=== PATIENT | male | born 1945 | race Caucasian/White ===

== ENCOUNTER 2018-11-07 10:07 | Outpatient (CLI) | payer MEDICARE ==
--- NOTE | 2018-11-07 11:20 | MRI ---
[facility] lumbar spine noncontrast: HISTORY: Lumbar spine stenosis. COMPARISON: None FINDINGS: Heterogeneous marrow signal intensity of the lumbar vertebra, likely due to senescent change. Type II Modic changes at L5-S1. 3 mm of anterolisthesis of L4 upon L5, 4 mm occlusive L5 upon S1 No significant STIR hyperintensity to suggest vertebral body edema or ligamentous injury Appropriate signal intensity of the paraspinal muscles T2 hyperintensity the left renal pelvis may represent a cyst Conus medullaris terminates at the inferior aspect of L1 T12-L1:Adequate disc hydration. No significant central canal stenosis or neural foraminal narrowing L1-2:Adequate disc hydration. No significant central canal stenosis or foraminal narrowing L2-3:Adequate disc hydration. No significant central canal stenosis or foraminal narrowing L3-4:Adequate disc hydration. Minimal generalized disc bulge, mild ligament flavum thickening and fac et hypertrophy. Mild central canal stenosis. Neural foramina are patent. L4-5:Loss of disc space height. Generalized disc bulge, ligament flavum thickening and facet hypertro phy result in moderate central canal stenosis. Narrowing of the right subarticular zone with partial obscuration of the traversing right L5 nerve root. Moderate right foraminal narrowing. Left neural fo ramen is patent. Small amount of fluid in the right facet joint L5-S1:Desiccation and moderate loss of disc space height. Generalized disc bulge without significant central canal stenosis. Minimal encroachment upon the right subarticular zone without obscuration the traversing right S1 nerve root. There is disc material left subarticular zone which displaces and mi nimally deforms the traversing left S1 nerve root. Moderate to severe bilateral neural foraminal narr owing. IMPRESSION: 1. Degenerative disc disease at L4-L5 with moderate central canal stenosis. There is moderate left f oraminal narrowing. 2. Narrowing of the left subarticular zone at L5-S1. There is some deformity without obscuration the traversing left S1 nerve root.
== END 2018-11-07 10:08 | disposition home or self-care (01) ==
LOC: TBSIIMAG 10:07
PROVIDERS: ATTEND Neurological Surgery
DX: M48.062 Spinal stenosis, lumbar region with neurogenic claudication (principal); G45.0 Vertebro-basilar artery syndrome; M51.36 Other intervertebral disc degeneration, lumbar region; M48.07 Spinal stenosis, lumbosacral region
CPT/HCPCS: 72148

== ENCOUNTER 2020-09-28 20:19 | Inpatient (IN) | payer MEDICARE ==
[2020-09-28 21:14] LABS: Bilirubin Negative (Negative); Blood, Urine Negative (Negative); Clarity Clear (Clear); Glucose, Urine (Dipstick) 500 mg/dL (Negative); Ketone, Urine Negative (Negative); Leukocyte Negative Leu/uL (Negative); Nitrite 2+ (Negative); Protein, Urine (Dipstick) Negative (Neg-Trace); RBC/HPF 0-3 HPF (0-3); Specific Gravity, Urine 1.019 (1.002-1.036); Squamous Epithelial 0-3 HPF (0-3); Urobilinogen 3 mg/dL (Less than 2); pH, Urine 6.5 (5.0-9.0)
[2020-09-28 21:20] LABS: Bacteria/HPF 4+ HPF (None Seen)
[2020-09-28 21:23] LABS: INR-International Normal Ratio 1.1; PTT 28.3 sec (22.9-36.1); Prothrombin Time 13.9 sec (12.0-14.7)
[2020-09-28 21:29] LABS: #Eosinphils 0.1 thou/uL (0.0-0.7); #Lymphocytes 1.4 thou/uL (1.20-3.40); #Monocytes 0.7 thou/uL (0.11-0.59); #Neutrophils 5.2 thou/uL (1.40-6.50); %Basophils 0.5 % (0.0-1.0); %Eosinophils 1.2 % (0.0-10.0); %Lymphocytes 18.4 % (21.0-51.0); %Monocytes 8.9 % (0.0-10.0); Hemoglobin 5.4 g/dL (14.0-18.0); Mean Corpuscular HGB CONC 28.7 g/dL (32.0-36.0); Mean Corpuscular Hemoglobin 18.2 pg (27.0-31.0); Mean Corpuscular Volume 63.4 fL (78.0-98.0); Mean Platelet Volume 6.9 fL (7.4-10.4); Platelet Count 66 thou/uL (130-400); RBC Distribution Width 23.3 % (11.5-14.5); Red Blood Cell (RBC) Count 2.95 mill/uL (4.70-6.10); White Blood Cell (WBC) Count 7.4 thou/uL (4.8-10.8)
[2020-09-28 21:39] LABS: ALT (SGPT) 13 U/L (8-55); AST (SGOT) 14 U/L (5-34); Albumin 4.2 g/dL (3.4-4.8); Alkaline Phosphatase 69 U/L (40-110); Anion Gap 13 mmol/L (10-20); BUN (Urea Nitrogen) 20 mg/dL (8.4-25.7); Bilirubin, Total 0.3 mg/dL (0.2-1.2); Calc. Creatinine Clearance 0 mL/min (70-130); Calcium 8.8 mg/dL (7.8-10.44); Carbon Dioxide 23 mmol/L (23-31); Chloride 108 mmol/L (98-107); Globulin 2.7 g/dL (2.4-3.5); Glucose 138 mg/dL (83-110); Potassium 3.4 mmol/L (3.5-5.1); Protein, Total 6.9 g/dL (5.8-8.1); Sodium 141 mmol/L (136-145)
[2020-09-28] MEDS ORDERED: cefTRIAXone\\ROCEPHIN 1 GM VIAL ONE (21:52)
[2020-09-28] MEDS ORDERED: Electrolyte Replacement Protocol 1 EACH FS SCH (23:45)
[2020-09-28] MEDS ORDERED: Guaifenesin DM 100-10/5 ML UDCUP PO PRN (23:58)
[2020-09-28] MEDS ORDERED: Ondansetron PF 4 MG/2 ML Vial IVP PRN (23:58)
[2020-09-28] MEDS ORDERED: cloNIDine 0.1 MG TAB PO PRN (23:58)
[2020-09-28] MEDS ORDERED: Promethazine HCl 12.5 MG in Sodium Chloride 0.9% 50 ML IVPB PRN (23:58)
[2020-09-28] MEDS ORDERED: hydrALAZINE 20 MG/ML VIAL SLOW IVP PRN (23:58)
[2020-09-28] MEDS ORDERED: HYDROcodone/Acetaminophen 5/325 mg Tablet PO PRN (23:58)
[2020-09-28] MEDS ORDERED: Acetaminophen 325 MG TAB PO PRN (23:58)
[2020-09-28] MEDS ORDERED: Labetalol HCl 100 MG/20 ML VIAL SLOW IVP PRN (23:58)
--- NOTE | 2020-09-29 00:01 | PDOC.HHP ---
Hospitalist HPI Pallor, weakness History of Present Illness: Patient is a 74 year old male with PMH HTN, DM who was sent to ED by PCP for anemia. Patient went to clinic with Dr Maria today complaining of pallor, weakness, fatigue for a few weeks, cannot walk more than a few steps without becoming weak. No chest pain, does admit to shortness of breath. Labwork done, hgb 5.5, patient referred to ED. Patient denies any bleeding, has never had a colonoscopy and is very hesitant to have a colonoscopy, stool sample sent for guiac and results pending, stool was of normal caliber. Patient to be admitted for further workup and care of anemia. here, hgb 5.4, UTI incindentally found, given ceftriaxone. Comments: metFORMIN tablet : Strength - 500 mg : ORAL Patient Dose: Unknown. Past History: PMH: DM, HTN PSH: none FH: no relevant family history PSH: denies alcohol, drug, smoking history Hospitalist HPI ROS Constitutional: reports: weakness, malaise. denies: fever, chills, sweats, other Eyes: denies: pain, vision change, conjunctivae inflammation, eyelid inflammation, redness, other ENT: denies: ear pain, ear discharge, nose pain, nose discharge, nose congestion, mouth pain, mouth swelling, throat pain, throat swelling, other Respiratory: reports: shortness of breath. denies: cough, dry, hemoptysis, SOB with excertion, pleuritic pain, sputum, wheezing, other Cardiovascular: denies: chest pain, palpitations, orthopnea, paroxysmal noc. dyspnea, edema, light headedness, other Gastrointestinal: denies: nausea, vomiting, abdominal pain, diarrhea, constipation, melena, hematochezia, other Genitourinary: denies: dysuria, frequency, incontinence, hematuria, retention, other Musculoskeletal: denies: neck pain, shoulder pain, arm pain, back pain, hand pain, leg pain, foot pain, other Skin: denies: rash, lesions, bryce, bruising, other Neurological: denies: weakness, numbness, incoordination, change in speech, confusion, seizures, other All other systems reviewed; all pertinent +/- noted in HPI/Subj Hospitalist Exam Vitals: VITAL SIGNS SunSep 28, 2020 22:00 Sherif Rangel RN, [facility], BP: 129/68 MAP: 88 Pulse: 91 Resp: 16 Temp: 97.9 (Oral) O2 sat: 100 on (Room Air) Time: 09/28/2020 22:00. General Appearance: NAD, awake alert Eye: PERRL, anicteric sclera ENT: normocephalic atraumatic, no oropharyngeal lesions, moist mucosa Neck: supple, symmetric, no JVD, no thyromegaly, no lymphadenopathy, no carotid bruit Heart: RRR, no murmur, no gallops, no rubs, normal peripheral pulses Respiratory: CTAB, no wheezes, no rales, no ronchi, normal chest expansion, no tachypnea, normal percussion Gastrointestinal: soft, non-tender, non-distended, normal bowel sounds, no palpable masses, no hepatomegaly, no splenomegaly, no bruit Extremities: no cyanosis, no clubbing, no edema Skin: normal turgor, no lesions, no rashes Neurological: cranial nerve grossly intact, normal sensation to touch, no weakness, no focal deficits, no new deficit Musculoskeletal: normal tone, normal strength, no muscle wasting Psychiatric: normal affect, normal behavior, A&O x 3 Hospitalist Results Result Diagrams: 09/28/20 20:58 09/28/20 20:58 Lab results: Laboratory Last Values WBC 7.4 thou/uL (4.8-10.8) 09/28/20 20:58 RBC 2.95 mill/uL (4.70-6.10) L 09/28/20 20:58 Hgb 5.4 g/dL (14.0-18.0) L* 09/28/20 20:58 Hct 18.7 % (42.0-52.0) L 09/28/20 20:58 MCV 63.4 fL (78.0-98.0) L 09/28/20 20:58 MCH 18.2 pg (27.0-31.0) L 09/28/20 20:58 MCHC 28.7 g/dL (32.0-36.0) L 09/28/20 20:58 RDW 23.3 % (11.5-14.5) H 09/28/20 20:58 Plt Count 66 thou/uL (130-400) L 09/28/20 20:58 MPV 6.9 fL (7.4-10.4) L 09/28/20 20:58 Neutrophils % 71.0 % (42.0-75.0) 09/28/20 20:58 Neutrophils % (Manual) Not Reportable 09/28/20 20:58 Lymphocytes % 18.4 % (21.0-51.0) L 09/28/20 20:58 Monocytes % 8.9 % (0.0-10.0) 09/28/20 20:58 Eosinophils % 1.2 % (0.0-10.0) 09/28/20 20:58 Basophils % 0.5 % (0.0-1.0) 09/28/20 20:58 Neutrophils # 5.2 thou/uL (1.40-6.50) 09/28/20 20:58 Lymphocytes # 1.4 thou/uL (1.20-3.40) 09/28/20 20:58 Monocytes # 0.7 thou/uL (0.11-0.59) H 09/28/20 20:58 Eosinophils # 0.1 thou/uL (0.0-0.7) 09/28/20 20:58 Basophils # 0.0 thou/uL (0.0-0.2) 09/28/20 20:58 PT 13.9 sec (12.0-14.7) 09/28/20 20:58 INR 1.1 09/28/20 20:58 APTT 28.3 sec (22.9-36.1) 09/28/20 20:58 Sodium 141 mmol/L (136-145) 09/28/20 20:58 Potassium 3.4 mmol/L (3.5-5.1) L 09/28/20 20:58 Chloride 108 mmol/L (98-107) H 09/28/20 20:58 Carbon Dioxide 23 mmol/L (23-31) 09/28/20 20:58 Anion Gap 13 mmol/L (10-20) 09/28/20 20:58 BUN 20 mg/dL (8.4-25.7) 09/28/20 20:58 Creatinine 0.96 mg/dL (0.7-1.3) 09/28/20 20:58 Estimated GFR (MDRD) 77 09/28/20 20:58 Glucose 138 mg/dL (83-110) H 09/28/20 20:58 Calcium 8.8 mg/dL (7.8-10.44) 09/28/20 20:58 Total Bilirubin 0.3 mg/dL (0.2-1.2) 09/28/20 20:58 AST 14 U/L (5-34) 09/28/20 20:58 ALT 13 U/L (8-55) 09/28/20 20:58 Alkaline Phosphatase 69 U/L (40-110) 09/28/20 20:58 Serum Total Protein 6.9 g/dL (5.8-8.1) 09/28/20 20:58 Albumin 4.2 g/dL (3.4-4.8) 09/28/20 20:58 Globulin 2.7 g/dL (2.4-3.5) 09/28/20 20:58 Albumin/Globulin Ratio 1.6 g/dL (1.2-2.2) 09/28/20 20:58 Urine Color Light-Yellow (Yellow) 09/28/20 20:26 Urine Clarity Clear (Clear) 09/28/20 20: Urine pH 6.5 (5.0-9.0) 09/28/20 20:26 Ur Specific Napoleon 1.019 (1.002-1.036) 09/28/20 20:26 Urine Protein Negative mg/dL (Neg-Trace) 09/28/20 20: Urine Glucose (UA) 500 mg/dL (Negative) A 09/28/20 20: Urine Ketones Negative mg/dL (Negative) 09/28/20 20: Urine Blood Negative (Negative) 09/28/20 20: Urine Nitrite 2+ (Negative) A 09/28/20 20: Urine Bilirubin Negative (Negative) 09/28/20 20: Urine Urobilinogen 3 mg/dL (Less than 2) A 09/28/20 20:26 Ur Leukocyte Esterase Negative Gui/uL (Negative) 09/28/20 20:26 Urine RBC 0-3 HPF (0-3) 09/28/20 20:26 Urine WBC 4-6 HPF (0-3) A 09/28/20 20:26 Ur Squamous Epith Cells 0-3 HPF (0-3) 09/28/20 20:26 Urine Bacteria 4+ HPF (None Seen) A 09/28/20 20:26 Blood Type B POSITIVE 09/28/20 21:45 Antibody Screen NEGATIVE 09/28/20 21:00 Crossmatch See Detail 09/28/20 21:00 Crossmatch Prewarmed See Detail 09/28/20 21:00 Additional comment: labs, imaging, ed documents reviewed Hospitalist H&P A/P Plan: Patient is a 74 year old male with PMH HTN, DM who was sent to ED by PCP for anemia. # anemia - no bleeding, GUIAC positive, Patient went to clinic with Dr Maria today complaining of pallor, weakness, fatigue, shortness of breath. hgb 5.5, patient referred to ED. Patient denies any bleeding, has never had a colonoscopy and is very hesitant to have a colonoscopy, stool sample sent for guiac and results positive, stool was of normal caliber and color per patient. Patient to be admitted for further workup and care of anemia. here, hgb 5.4, UTI incindentally found, given ceftriaxone. - admit to floor - consult GI - trend CBC - transfuse 2 units - consider oncology consult once GI pathology ruled out # UTI - follow cultures - ceftriaxone # DM - SSI # HTN - PRN HTN medications GI/DVT ppx - SCD, no anticoagulants, start PPI Disposition - per clinical improvement, PT/OT consults
[2020-09-29] MEDS ORDERED: Dextrose 50% Abboject 50 ML SYRINGE SLOW IVP PRN (00:42)
[2020-09-29] MEDS ORDERED: Dextrose 5% in Water 1,000 ML IV PRN (00:42)
[2020-09-29] MEDS ORDERED: Electrolyte Replacement Protocol FS PRN (01:30)
[2020-09-29] MEDS ORDERED: Potassium Chloride 20 MEQ TAB PO SCH (01:30)
[2020-09-29 05:16] LABS: INR-International Normal Ratio 1.1; PTT 27.5 sec (22.9-36.1); Prothrombin Time 14.2 sec (12.0-14.7)
[2020-09-29 05:21] LABS: ALT (SGPT) 11 U/L (8-55); AST (SGOT) 14 U/L (5-34); Albumin 4.1 g/dL (3.4-4.8); Alkaline Phosphatase 68 U/L (40-110); Anion Gap 14 mmol/L (10-20); BUN (Urea Nitrogen) 15 mg/dL (8.4-25.7); Bilirubin, Direct 0.2 mg/dL (0.1-0.3); Bilirubin, Total 0.4 mg/dL (0.2-1.2); Calc. Creatinine Clearance 0 mL/min (70-130); Calcium 8.8 mg/dL (7.8-10.44); Carbon Dioxide 22 mmol/L (23-31); Chloride 107 mmol/L (98-107); Glucose 236 mg/dL (83-110); Magnesium 2.2 mg/dL (1.6-2.6); Potassium 4.1 mmol/L (3.5-5.1); Protein, Total 6.7 g/dL (5.8-8.1); Sodium 139 mmol/L (136-145)
[2020-09-29 05:22] LABS: SARS-CoV-2 PCR by NAA Not Detected (NotDetected)
[2020-09-29 05:26] LABS: #Eosinphils 0.1 thou/uL (0.0-0.7); #Monocytes 0.5 thou/uL (0.11-0.59); #Neutrophils 3.1 thou/uL (1.40-6.50); %Basophils 0.3 % (0.0-1.0); %Eosinophils 1.7 % (0.0-10.0); %Lymphocytes 21.4 % (21.0-51.0); %Monocytes 10.3 % (0.0-10.0); %Neutrophils 66.4 % (42.0-75.0); Hemoglobin 6.3 g/dL (14.0-18.0); Mean Corpuscular HGB CONC 33.7 g/dL (32.0-36.0); Mean Corpuscular Hemoglobin 22.3 pg (27.0-31.0); Mean Corpuscular Volume 66.1 fL (78.0-98.0); Mean Platelet Volume 7.9 fL (7.4-10.4); Platelet Count 50 thou/uL (130-400); RBC Distribution Width 24.9 % (11.5-14.5); Red Blood Cell (RBC) Count 2.84 mill/uL (4.70-6.10); White Blood Cell (WBC) Count 4.7 thou/uL (4.8-10.8)
[2020-09-29 15:56] VITALS: BMI 27.3
[2020-09-29] MEDS ORDERED: GoLYTELY 4,000 ml Bottle PO SCH (16:30)
--- NOTE | 2020-09-29 16:36 | PDOC.BPN ---
- Brief Progress Note [id number] progress note dictated
--- NOTE | 2020-09-29 17:34 | PRG ---
DATE OF SERVICE: 09/29/2020 SUBJECTIVE: The patient is sitting up in bed, does not appear to be in acute distress. He still appears pale. OBJECTIVE: GENERAL: The patient appears pale, not in distress. VITAL SIGNS: Blood pressure is 150/89, pulse is 81, respiratory rate is 20, oxygen saturation 94% on room air. HEAD AND NECK: Normocephalic and atraumatic. Neck is supple. No JVD. CHEST: Fair bilateral air entry. HEART: S1 and S2, regular. ABDOMEN: Soft, nontender. Bowel sounds present. NEUROLOGIC: Awake, alert, oriented, no focal deficits. PSYCH: Normal mood. LABORATORY DATA: Hemoglobin 6.3, WBC 4.7, platelets 50. ASSESSMENT: 1. Anemia with guaiac-positive stool. 2. Urinary tract infection. The patient is on IV ceftriaxone. 3. Diabetes mellitus, on sliding scale with insulin coverage. 4. Hypertension. The patient is on p.r.n. hypertension medications. 5. Thrombocytopenia. PLAN: 1. The patient was transfused packed RBCs. 2. GI was consulted and planned for possible endoscopy. 3. Continue to monitor hemoglobin and hematocrit. 4. The patient has thrombocytopenia. Continue to monitor platelet count. 5. GI prophylaxis, the patient is on PPI. 6. DVT prophylaxis, SCDs. Job ID: [id number]
[2020-09-29] MEDS: cefTRIAXone\\ROCEPHIN 1 GM in Sodium Chloride 0.9% 100 ML IVPB SCH (21:10)
--- NOTE | 2020-09-30 02:46 | CON ---
DATE OF CONSULTATION: 09/29/2020 REASON FOR CONSULTATION: Symptomatic anemia. CONSULTING PROVIDER: Fareed Stevens MD HISTORY OF PRESENT ILLNESS: The patient is a 74-year-old male, with past medical history of hypertension, diabetes, and tobacco abuse, presenting with complaints of shortness of breath. He states that he began noticing this increased shortness of breath/dyspnea on exertion that has been present for at least last 2-3 months and associated with increased palpitations, fatigue, and weakness that has been progressively worsening over the last 2-3 months. With this increased shortness of breath, it ultimately prompted him to seek healthcare assistance at the [facility] ER and while in the ER he was noted to have a significant anemia with a hemoglobin of 5.5. Upon further questioning the patient, he denied any history of overt bleeding, GI, or otherwise. He does have a history of chronic back pain for which he ultimately underwent what sounds like radiofrequency ablation of his spinal nerves approximately 2 weeks ago, but otherwise has been in his usual state of health. Currently, he denies any nausea, vomiting, fevers, chills, hematemesis, melena, hematochezia, dysphagia, odynophagia, diarrhea, or constipation. However, he does endorse an approximately 10-12 pounds weight loss over the last 3-4 months that was unintentional. REVIEW OF SYSTEMS: 10-category review of systems was obtained with all responses negative except for the pertinent positives as listed in HPI. PAST MEDICAL HISTORY: As per HPI. PAST SURGICAL HISTORY: None. FAMILY HISTORY: Denies any GI malignancies. SOCIAL HISTORY: Denies any alcohol or illicit drug use. He did smoke approximately 10-20 years ago and has currently been using chewing tobacco almost daily. OUTPATIENT MEDICATIONS: Reviewed. ALLERGIES: MEPERIDINE AND PENICILLIN. PHYSICAL EXAMINATION: VITAL SIGNS: Temperature 97.6, pulse 81, blood pressure 155/89, respiratory rate 20, saturating 97% on room air. GENERAL: The patient was sitting in a chair at bedside, in no acute distress. Alert and oriented x4. HEENT: Normocephalic, atraumatic. NECK: Supple. No JVD or scleral icterus noted. CARDIOVASCULAR: Regular rate and rhythm with no discernible murmurs, gallops, or rubs. RESPIRATORY: Clear to auscultation bilaterally with no discernible wheezes or rales. ABDOMEN: Normoactive bowel sounds. Soft, nontender, and nondistended. EXTREMITIES: No cyanosis, clubbing, or edema. LABORATORY DATA: CBC with a white blood cell count of 4.7, hemoglobin 6.3, hematocrit 18.8, platelets 50. Chemistry with a sodium of 139, potassium 4.1, chloride 107, CO2 of 22, BUN 20, creatinine 0.96, glucose 138, AST 14, ALT 11, alkaline phosphatase 68, total bilirubin 0.4. INR 1.1. Urinalysis is consistent with urinary tract infection. IMAGING DATA: No current GI imaging is available for review. ASSESSMENT AND PLAN: The patient is a 74-year-old male with past medical history of hypertension, diabetes, and tobacco abuse presenting with symptomatic anemia. Symptomatic anemia. The patient is presenting with complaints of dyspnea on exertion that has been progressively worsening over the last 2-3 months. This has been coupled with palpitations, fatigue, and generalized weakness in addition to a weight loss of approximately 10-12 pounds over the same time period unintentionally. He denies any symptoms of overt bleeding, GI, or otherwise, although on review of the patient's chart, he did have a CT abdomen and pelvis obtained in 2014 showing enlargement of the prostate. At the current point in time, the etiology of his anemia is unknown and the patient was given blood products prior to obtaining iron indices to further characterize his anemia. Current differential could include esophagitis, gastritis, duodenitis, peptic ulcer disease (less likely), arteriovenous malformation, Dieulafoy lesion, GI malignancies, bone marrow dysfunction, malignancy in general (would consider prostate or lung cancer). RECOMMENDATIONS: 1. We would continue to trend his H and H and transfuse as necessary to maintain an H and H of 7/21. 2. Continue to monitor clinically for signs of active GI bleeding. 3. We would avoid any anticoagulation in light of the patient's significant anemia. 4. We would place the patient on pantoprazole 40 mg daily in light of possible upper GI bleeding. 5. We would place the patient on a clear liquid diet and make him n.p.o. at midnight in anticipation of endoscopy tomorrow. 6. We would plan for both upper endoscopy and colonoscopy for intraluminal evaluation. If the studies are negative, I would then possibly consider a CT scan of the chest, abdomen, and pelvis given the higher likelihood of a lung cancer with chronic tobacco abuse or possibly even prostate cancer with metastatic spread based on the CT scan from 2015. We will continue to follow. Please call with any questions. Dr. Cunningham will perform the procedures tomorrow. Job ID: [id number]
[2020-09-30 06:35] LABS: #Eosinphils 0.1 thou/uL (0.0-0.7); #Lymphocytes 1.1 thou/uL (1.20-3.40); #Monocytes 0.4 thou/uL (0.11-0.59); %Eosinophils 3.5 % (0.0-10.0); %Lymphocytes 29.8 % (21.0-51.0); %Neutrophils 54.7 % (42.0-75.0); Hemoglobin 7.1 g/dL (14.0-18.0); Mean Corpuscular HGB CONC 33.8 g/dL (32.0-36.0); Mean Corpuscular Volume 67.9 fL (78.0-98.0); Mean Platelet Volume 7.5 fL (7.4-10.4); Platelet Count 38 thou/uL (130-400); Red Blood Cell (RBC) Count 3.07 mill/uL (4.70-6.10); White Blood Cell (WBC) Count 3.7 thou/uL (4.8-10.8)
[2020-09-30 06:45] LABS: Anion Gap 12 mmol/L (10-20); BUN (Urea Nitrogen) 9 mg/dL (8.4-25.7); Calc. Creatinine Clearance 95 mL/min (70-130); Calcium 8.9 mg/dL (7.8-10.44); Carbon Dioxide 28 mmol/L (23-31); Chloride 104 mmol/L (98-107); Glucose 149 mg/dL (83-110); Magnesium 1.9 mg/dL (1.6-2.6); Potassium 3.2 mmol/L (3.5-5.1); Sodium 141 mmol/L (136-145)
[2020-09-30] MEDS ORDERED: Dextrose 50% Abboject 50 ML SYRINGE SLOW IVP PRN (07:37)
[2020-09-30] MEDS ORDERED: Magnesium 2 GM/50 ML 2 GM in Premix Bag 1 BAG IVPB SCH (07:45)
[2020-09-30] MEDS ORDERED: PROPOFOL 200 MG/20 ML VIAL ONE (09:42)
[2020-09-30] MEDS ORDERED: PHENYLEPHRINE-NS 100 MCG/ML 10 ML SYRINGE ONE (09:42)
[2020-09-30] MEDS ORDERED: Ketamine 50 MG/ML (10ML VIAL) ONE (09:56)
--- NOTE | 2020-09-30 11:36 | OP ---
DATE OF PROCEDURE: 09/30/2020 PROCEDURE PERFORMED: Esophagogastroduodenoscopy with biopsy and snare polypectomy and colonoscopy with snare polypectomy. PREOPERATIVE DIAGNOSIS: Iron deficiency anemia. DESCRIPTION OF PROCEDURE: Informed consent was obtained from the patient. He was sedated with total intravenous anesthesia. The bite block was placed and the endoscope was advanced easily to the second portion of the duodenum and retroflexion was performed in the stomach. The esophagus was normal. The GE junction was normal. The stomach had mild patchy erosive gastritis in the antrum. Biopsies were taken from the antrum and body to rule out Helicobacter pylori. There was a 9 mm polyp in the pyloric channel, which was removed by snare cautery polypectomy. The duodenum was otherwise normal. The biopsies were obtained from the second portion of the duodenum to rule out celiac disease. The patient was turned around. Rectal exam was performed and revealed a firm prostate. The colonoscope was advanced to the terminal ileum with some difficulty as there was tortuosity of the sigmoid colon. The mucosa of the terminal ileum was normal. The ileocecal valve and appendiceal orifice were clearly identified. The preparation quality was good. There was severe diverticulosis of the sigmoid colon. There were 2 polyps at the rectosigmoid, removed by snare cautery polypectomy. One measured 1 cm, the other measured 7 mm. These had a somewhat smooth, pale overlying mucosa. Retroflexed views in the rectum revealed large internal hemorrhoids. IMPRESSION: 1. Mild patchy erosive antral gastritis, biopsied to rule out Helicobacter pylori. 2. A 9 mm trial pyloric channel polyp removed by snare cautery polypectomy. 3. Otherwise normal esophagogastroduodenoscopy. Duodenal biopsies were taken to rule out celiac disease. 4. Severe sigmoid diverticulosis. 5. Rectosigmoid polyps measuring 1 cm and 7 mm, removed by snare cautery polypectomy. 6. Large internal hemorrhoids. 7. Otherwise normal colonoscopy to the terminal ileum. RECOMMENDATIONS: 1. Await histopathology. 2. CT scan of the abdomen and pelvis to further evaluate his weight loss. 3. Also check a chest x-ray. Job ID: [id number]
--- NOTE | 2020-09-30 13:08 | PDOC.BPN ---
- Brief Progress Note [id number] Progress
[2020-09-30] MEDS: Potassium Chloride 40 MEQ in Sodium Chloride 0.9% 250 ML 250 ML IVPB SCH ×2 (13:09→15:34)
--- NOTE | 2020-09-30 13:28 | PRG ---
DATE OF SERVICE: 09/30/2020 SUBJECTIVE: No new complaint except for weakness and shortness of breath with exertion. PHYSICAL EXAMINATION: GENERAL: The patient is awake, alert, does not appear to be in acute distress. VITAL SIGNS: Blood pressure 129/76, pulse is 80, respiratory rate is 16, temperature 98.1. HEAD AND NECK: Normocephalic, atraumatic. NECK: Supple. CHEST: Fair bilateral entry. HEART: S1, S2. Regular. ABDOMEN: Soft, nontender. Bowel sounds present. NEUROLOGIC: Awake and alert. Moving extremities. PSYCHIATRIC: Normal mood. LABORATORY DATA: WBC count is 3.7, hemoglobin is 7.1, platelets are 38. ASSESSMENT: 1. Symptomatic anemia with Guaiac positive stools. 2. Urinary tract infection, on ceftriaxone. 3. Diabetes mellitus. 4. Hypertension. 5. Thrombocytopenia. PLAN: 1. The patient is for endoscopy today as per GI. 2. If endoscopy is negative, the patient will need imaging studies including CT of the abdomen and pelvis along with chest imaging. 3. Continue with current medications including PPI. 4. Continue with antibiotics for urinary tract infection. Job ID: [id number]
[2020-09-30] MEDS ORDERED: Iopamidol-370 76% 500 ML 1 ML ONE (13:51)
--- NOTE | 2020-09-30 14:32 | CT ---
CT ABDOMEN AND PELVIS WITH IV CONTRAST 09/30/2020 CLINICAL INFORMATION: Weight loss, iron deficiency anemia. Negative endoscopy. COMPARISON: Noncontrast CT abdomen and pelvis in 2015. Technique: Multiple contiguous axial CT images are obtained through the abdomen and pelvis with IV contrast. Cor onal reformatted images are provided. FINDINGS: Lower Chest: Minimal atelectasis versus scarring is seen at each lung base. Vessels: Vascular calcifications are seen abdominal aorta and iliac arteries as well as involving the limited visualized coronary arteries. Abdomen: Portal vein:Patent Gallbladder: Within normal limits for CT imaging. Liver: within normal limits. Spleen: Multiple splenic granulomata. Pancreas: within normal limits. Adrenals: within normal limits. Kidneys: within normal limits. Bowel: Multiple colonic diverticuli seen involving the sigmoid colon. Loops of small bowel are normal in caliber. Appendix: The appendix is visualized and normal in caliber. Peritoneum: No ascites or free air; no fluid collection. Mesentery and Retroperitoneum: No enlarged mesenteric or retroperitoneal lymph nodes. Abdominal Wall: Fat-containing bilateral inguinal canals are present. Pelvis: Reproductive Organs: Nonspecific heterogeneity of the prostate gland. Bladder: within normal limits. Bones: Degenerative changes are seen in the lumbar spine. IMPRESSION: 1. No acute findings in the abdomen or pelvis. 2. Colonic diverticulosis.
--- NOTE | 2020-09-30 14:41 | RAD ---
EXAM: Two views chest PROVIDED CLINICAL HISTORY: Weight loss. History of smoking. COMPARISON: None FINDINGS: Cardiac silhouette and pulmonary vasculature are within normal limits. A tiny subcentimeter nodular density is seen overlying right hilar region. This probably represents a prominent vessel on end, but follow-up chest x-ray in 3 months is recommended for further evaluation. Lungs are otherwise megha r. No consolidation or pleural fluid is seen. Degenerative changes are seen in the spine. There does appear to be slight wedge-shaped deformities involving a few mid thoracic vertebral bodies likel y due to minimal compression deformities of indeterminate age. IMPRESSION: 1. Tiny subcentimeter nodular density overlying the right hilar region. This is thought to be related to a prominent vessel, but follow-up chest x-ray in 3 months is recommended for further evaluation of this finding. 2. Slight wedge-shaped compression deformities involving midthoracic vertebral bodies of indeterminat e age..
[2020-09-30] MEDS ORDERED: Potassium Chloride 20 MEQ TAB PO SCH (16:00)
[2020-09-30] MEDS: cefTRIAXone\\ROCEPHIN 1 GM in Sodium Chloride 0.9% 100 ML IVPB SCH (20:45)
[2020-09-30] MEDS: HumaLOG 300 UNITS/3 ML VIAL SC PRN (21:20)
[2020-10-01] MEDS: HumaLOG 300 UNITS/3 ML VIAL SC PRN ×3 (04:57→21:04)
[2020-10-01 07:36] LABS: Anion Gap 15 mmol/L (10-20); BUN (Urea Nitrogen) 14 mg/dL (8.4-25.7); Calc. Creatinine Clearance 89 mL/min (70-130); Calcium 9.1 mg/dL (7.8-10.44); Carbon Dioxide 22 mmol/L (23-31); Chloride 107 mmol/L (98-107); Glucose 260 mg/dL (83-110); Magnesium 2.2 mg/dL (1.6-2.6); Potassium 4.7 mmol/L (3.5-5.1); Sodium 139 mmol/L (136-145)
[2020-10-01 07:44] LABS: #Basophils 0.1 thou/uL (0.0-0.2); #Eosinphils 0.2 thou/uL (0.0-0.7); #Lymphocytes 1.1 thou/uL (1.20-3.40); #Monocytes 0.5 thou/uL (0.11-0.59); #Neutrophils 3.4 thou/uL (1.40-6.50); %Basophils 1.1 % (0.0-1.0); %Eosinophils 4.2 % (0.0-10.0); %Lymphocytes 21.4 % (21.0-51.0); %Monocytes 8.7 % (0.0-10.0); %Neutrophils 64.6 % (42.0-75.0); Hemoglobin 6.9 g/dL (14.0-18.0); Mean Corpuscular HGB CONC 30.7 g/dL (32.0-36.0); Mean Corpuscular Hemoglobin 21.2 pg (27.0-31.0); Platelet Count 28 thou/uL (130-400); RBC Distribution Width 25.9 % (11.5-14.5); Red Blood Cell (RBC) Count 3.28 mill/uL (4.70-6.10); White Blood Cell (WBC) Count 5.2 thou/uL (4.8-10.8)
[2020-10-01 08:40] LABS: Hypochromia MODERATE=16-30 cells (100X) (0-5/hpf); MDiff Complete? YES; Microcytosis MODERATE=15-30 cells (100X) (0-5/hpf); Platelet Morphology Comment Appears Decreased; Polychromasia SLIGHT = 2-3 cells (100X) (0-2/hpf)
--- NOTE | 2020-10-01 11:19 | CT ---
CT CHEST WITH CONTRAST CLINICAL INDICATION: Weight loss and shortness of breath. COMPARISON: None FINDINGS: Aorta: Vascular calcifications are seen in the aortic arch and involving the origin of the great vess els. Thoracic aorta is normal in caliber without evidence of an aortic dissection. Lungs: A subpleural pulmonary nodule is seen in the right lower lobe measuring approximately 6 mm wit h a smaller 4 mm subpleural pulmonary nodule also seen in the right lower lobe. A partially calcified subcentimeter nodular density is seen in the posterior aspect superior segment right lower lobe measuring 5 mm There is linear scarring with calcification in the superior segment of the right lower lobe. Minimal linear atelectasis is present in the left lower lobe. Lungs are otherwise c lear. No mass, consolidation, or pleural effusion is identified Mediastinum: No enlarged lymph nodes are seen by CT size criteria. Calcified right hilar and mediasti nal lymph nodes are present related to prior granulomatous disease. There is fat density seen between the right and left atrium likely representing an interatrial lipoma. Thyroid gland: Normal CT appearance. Osseous structures: Degenerative changes are seen in the spine. No suspicious lytic or scarring osseo us lesions are identified. Chest wall: No abnormality visualized. Upper abdomen: Calcified granulomata are seen in the liver and spleen. Vascular calcifications are se en in the abdominal aorta. IMPRESSION: 1. Subpleural pulmonary nodules right lower lobe largest measuring 6 mm. Follow-up evaluation in 6 mo nths is recommended. 2. No consolidation or mass is seen within the lungs bilaterally, and there is no evidence of lymphad enopathy. 3. Vascular calcifications.
[2020-10-01] MEDS ORDERED: Iopamidol-370 76% 500 ML 1 ML ONE (11:48)
[2020-10-01 13:46] LABS: Reticulocyte Count 1.9 % (0.5-1.5)
[2020-10-01 14:00] LABS: Iron 60 ug/dL (65-175); Iron Binding Capacity, Total 488 mcg/dL (261-462)
[2020-10-01 15:26] LABS: Ferritin 23.29 ng/mL (22-322)
[2020-10-01] MEDS ORDERED: Iron Sucrose Complex 200 MG in Sodium Chloride 0.9% 100 ML IVPB SCH (16:00)
--- NOTE | 2020-10-01 16:33 | CON ---
DATE OF CONSULTATION: REASON FOR CONSULTATION: Symptomatic anemia and thrombocytopenia. HISTORY OF PRESENT ILLNESS: Mr. Alvarez is a 74-year-old gentleman with hypertension and diabetes, who presented to his primary care with shortness of breath. He states it started 2 or 3 months ago and has gotten progressively worse. He is now having palpitations and fatigue. He had a CBC drawn in his primary care, which showed a hemoglobin of 5.5. He was then referred to the emergency room and admitted for symptomatic anemia. He underwent a GI evaluation, which showed no evidence of bleeding. He did have a colonoscopy with polypectomy. He denies any blood in his stool. Over the course of the hospitalization, his platelets dropped from 64,000 on admission to 28,000. The patient does have a history of platelet clumping. He has lost 10 to 12 pounds over the last several months, but had a good appetite. He underwent a CT of the chest, abdomen, and pelvis, which showed no evidence of malignancy. PAST MEDICAL HISTORY: 1. Hypertension. 2. Diabetes mellitus, 2. 3. Tobacco use. PAST SURGICAL HISTORY: 1. Colonoscopy. 2. Rectocele repair for hydrocele. ALLERGIES: DEMEROL AND PENICILLIN. HOME MEDICATIONS: 1. Avodart. 2. Glimepiride. 3. Lisinopril. 4. Metformin. 5. Protonix. 6. Rosuvastatin. FAMILY HISTORY: No history of GI or hematological malignancies. SOCIAL HISTORY: , lives with his spouse. No alcohol or illicit drug use. REVIEW OF SYSTEMS: A 10-point review of systems is negative except for noted in HPI. PHYSICAL EXAMINATION: VITAL SIGNS: Temperature is 97.6, pulse is 99, respiratory rate 20, blood pressure is 167/75. GENERAL: A well-developed, well-nourished male, in no acute distress. HEENT: Normocephalic and atraumatic. Pupils equal and reactive to light. NECK: Supple. CV: Regular rate and rhythm. LUNGS: Clear. ABDOMEN: Soft and nontender. Bowel sounds are positive. EXTREMITIES: No clubbing or cyanosis. SKIN: No rash. HEMATOLOGICAL: No petechiae. Scattered bruising on his arms. NEUROLOGIC: Nonfocal. PERTINENT LABORATORY DATA AND X-RAYS: WBCs are 5.2, hemoglobin 6.9, hematocrit 22.6, MCV is 69, platelet count is 28,000, neutrophils 65%, 21% lymphocytes, and reticulocyte is 1.9. PT is 14.1, INR is 1.1, and PTT is 27.5. Sodium 139, potassium 4.7, chloride 107, CO2 is 22, BUN is 14, creatinine 0.84, and calcium 9.1. Magnesium 2.2. Iron 60, TIBC is 488, ferritin 23, iron saturation is 12, and B12 is 656. LDH is 146. Bilirubin is 0.4, AST is 14, ALT is 11, and alkaline phosphatase is 68. Serum total protein 6.7, albumin 4.1. He has 4+ bacteria. COVID PCR negative. Radiology per HPI. ASSESSMENT: 1. Severe microcytic anemia. 2. Progressive thrombocytopenia. DISCUSSION: The patient's iron studies have been drawn. He clearly has iron deficient anemia. In review of [facility], he was iron deficient back in 10/2018. He states he did take iron for a couple of months, but was told he could stop. His hemoglobin at that time was 8.9 and did improve to 14. His platelet count has intermittently clumped, it was 64 on arrival and now it is dropped to 28. We will have a slidement to ensure that he is not clumping or waiting for a B12 and folic acid. He does not have evidence of hemolysis. Doubtful he is having acute leukemia. Case has been discussed with Dr. Feng who will follow with the patient over the weekend. Thank you for the consult. Job ID: [id number]
--- NOTE | 2020-10-01 16:53 | PRG ---
DATE OF SERVICE: 10/01/2020 SUBJECTIVE: Mr. Alvarez has no acute complaints today. No nausea or vomiting. He has had no bowel movement since his endoscopy. No abdominal pain. He is receiving a blood transfusion now. PHYSICAL EXAMINATION: VITAL SIGNS: Temperature 97.6, pulse 99, blood pressure 167/75. GENERAL: He is in no acute distress. Alert and oriented x3. LUNGS: Clear to auscultation bilaterally. HEART: Regular rate and rhythm without murmur. ABDOMEN: Soft, nontender, nondistended. Bowel sounds are present. EXTREMITIES: No lower extremity edema. LABORATORY DATA: White blood cell count 5.2, hemoglobin 6.9, platelets 28. INR 1.1. Ferritin 23, iron 60, TIBC 488. LDH 146. Vitamin B12 is 656. Folate 9.5. IMPRESSION: 1. Iron deficiency anemia. Upper and lower endoscopy were negative for significant bleeding source. He did have a polyp removed from the pyloric channel ulcer. I removed two polyps from the rectosigmoid. He has severe diverticulosis in the colon. Duodenal biopsies were taken to rule out celiac disease. These are pending. Polyp biopsies are also pending. He had mild gastritis, but no significant bleeding source. Biopsies were taken from the stomach to rule out Helicobacter pylori and are pending. 2. Weight loss. CT scan of the abdomen and pelvis and chest is negative for an obvious source for weight loss. 3. Thrombocytopenia. His liver tests are normal. CT scan does not show obvious signs of cirrhosis. The spleen is not enlarged. Hematology has been consulted to evaluate regarding the thrombocytopenia and anemia as well. RECOMMENDATIONS: 1. No bleeding source was identified by upper and lower endoscopy. He can follow up in the office to consider capsule endoscopy as the next step as a workup for iron-deficiency anemia. 2. Regarding the severe thrombocytopenia, he does not have signs of obvious cirrhosis or portal hypertension at this point. We will await Oncology input. 3. I will sign off for now. Follow up in the office with Dr. Chao to go over pathology results and consider outpatient capsule endoscopy. Job ID: [id number]
[2020-10-01] MEDS ORDERED: Iron, Sodium Ferric Gluconate 250 MG in Sodium Chloride 0.9% 100 ML IVPB SCH (17:00)
--- NOTE | 2020-10-01 18:56 | PDOC.HOSPP ---
- Subjective Encounter Date: 10/01/20 Encounter Time: 15:00 Subjective: Patient seen for follow-up regarding anemia. He denies chest pain or shortness of breath. - Objective Vital Signs & Weight: Vital Signs (12 hours) Temp Pulse Resp BP 10/01/20 07:32 97.6 F 99 20 167/75 H Weight Weight 180 lb I&O: 09/30/20 10/01/20 10/02/20 06:59 06:59 06:59 Intake Total 4200 1450 1550 Balance 4200 1450 1550 Result Diagrams: 10/01/20 06:23 10/01/20 06:23 Additional Labs: Accuchecks 10/01/20 10/01/20 09/30/20 16:32 04:19 20:52 POC Glucose 225 H 226 H 230 H Labs and MAR reviewed by ia Hospitalist ROS - Review of Systems Cardiovascular: denies: chest pain, palpitations, orthopnea, paroxysmal noc. dyspnea, edema, light headedness Gastrointestinal: denies: nausea, vomiting, abdominal pain, diarrhea, constipation, melena, hematochezia - Medication Medications: Active Medications Generic Name Dose Route Start Last Admin Trade Name Freq PRN Reason Stop Dose Admin Ceftriaxone Sodium 1 gm/ 100 mls @ 200 mls/hr 09/29/20 21:00 09/30/20 20:45 Sodium Chloride IVPB 100 mls HS [place] Administration Ferric Sodium Gluconate 120 mls @ 60 mls/hr 10/01/20 17:00 10/01/20 18:22 Complex 250 mg/ Sodium IVPB 120 mls Chloride 1700 [place] Administration Insulin Human Lispro 0 units 09/29/20 00:42 10/01/20 17:53 Humalog 300 Units/3 Ml Vial SC 3 unit .MILD SLIDING SCALE PRN Administration Mild Correctional Scale Pantoprazole Sodium 40 mg 09/29/20 09:00 10/01/20 10:27 Pantoprazole 40 Mg Tab PO 40 mg DAILY [place] Administration Sodium Chloride 10 ml 09/29/20 09:00 10/01/20 10:27 Flush - Normal Saline 10 Ml Syringe IVF 10 ml Q12HR [place] Administration Hospitalist Exam Vitals: Vital Signs (12 hours) Temp Pulse Resp BP 10/01/20 07:32 97.6 F 99 20 167/75 H Weight Weight 180 lb General Appearance: awake alert ENT: moist mucosa Neck: supple Heart: RRR Respiratory: CTAB Gastrointestinal: soft, non-tender Skin: no rashes Musculoskeletal: normal tone Psychiatric: normal affect Hosp A/P (1) Anemia Code(s): D64.9 - ANEMIA, UNSPECIFIED Status: Acute (2) UTI (urinary tract infection) Status: Acute (3) Thrombocytopenia Code(s): D69.6 - THROMBOCYTOPENIA, UNSPECIFIED Status: Acute (4) Weight loss Status: Acute (5) HTN (hypertension) Code(s): I10 - ESSENTIAL (PRIMARY) HYPERTENSION Status: Chronic (6) DM2 (diabetes mellitus, type 2) Status: Chronic - Plan Patient is a pleasant 74-year-old gentleman who was admitted to the hospital on September 29, 2020 for anemia and weight loss. He was seen by GI service and underwent EGD and colonoscopy. He had mild gastritis, pyloric channel polyp and rectosigmoid polyps as well as large internal hemorrhoids. CT scan of the chest showed pulmonary nodule, patient will need follow-up CT scan in [address] sc an of the abdomen and pelvis did not show any acute findings. He has been seen by oncology service as well, will follow him over the weekend. Patient has received 3 units of packed RBC transfusion so far. Urine culture grew nonhemolytic Streptococcus. Continue ceftriaxone Transfuse packed RBCs as needed. Monitor vital signs and titrate antihypertensives as needed. Continue Accu-Cheks and insulin sliding scale.
[2020-10-01] MEDS: cefTRIAXone\\ROCEPHIN 1 GM in Sodium Chloride 0.9% 100 ML IVPB SCH (20:53)
[2020-10-02 07:07] LABS: Anion Gap 12 mmol/L (10-20); BUN (Urea Nitrogen) 10 mg/dL (8.4-25.7); Calc. Creatinine Clearance 92 mL/min (70-130); Calcium 9.2 mg/dL (7.8-10.44); Carbon Dioxide 26 mmol/L (23-31); Chloride 103 mmol/L (98-107); Glucose 154 mg/dL (83-110); Potassium 3.8 mmol/L (3.5-5.1); Sodium 137 mmol/L (136-145)
[2020-10-02 07:34] LABS: Anisocytosis MODERATE=16-30 cells (100X) (0-5/hpf); Band 9 % (5-11); Eosinophils 3 % (0-10); Hemoglobin 8.2 g/dL (14.0-18.0); Large Platelets SLIGHT; Lymphocytes 12 % (21-51); MDiff Complete? YES; Mean Corpuscular HGB CONC 31.2 g/dL (32.0-36.0); Mean Corpuscular Hemoglobin 22.3 pg (27.0-31.0); Mean Corpuscular Volume 71.4 fL (78.0-98.0); Mean Platelet Volume 13.1 fL (7.4-10.4); Monocytes 5 % (0-10); Neutrophil 71 % (42-75); Platelet Count 17 thou/uL (130-400); Platelet Morphology Comment Appears Decreased; Poikilocytosis SLIGHT = 6-15 cells (100X) (0-5/hpf); RBC Distribution Width 25.8 % (11.5-14.5); White Blood Cell (WBC) Count 11.1 thou/uL (4.8-10.8)
[2020-10-02 09:37] VITALS: BP 139/84; TEMP 98.2
--- NOTE | 2020-10-03 01:31 | CON ---
DATE OF CONSULTATION: 10/02/2020 SUBJECTIVE: The patient is up in his room pacing and insisting on discharge as soon as possible. He has no complaints at this time, except for some cutaneous bruising. OBJECTIVE: He is alert and oriented and appropriate. He has received 250 mg IV iron and 3 units of pRBC's. LABORATORY STUDIES: Today include a white blood cell count 11.1, hemoglobin 8.2, MCV 71.4, and platelet count 17,000. The patient has had a history of clumping in the past, but there has been no evidence of platelet clumping on this admission. Electrolytes are normal as is a creatinine today. Laboratory studies including iron studies are indicative of iron deficiency, specifically ferritin 23 and iron saturation less than 20%. B12 and folic acid are normal. LDH is normal. IMPRESSION: 1. Iron-deficiency anemia. Upper and lower endoscopy have been negative during this hospitalization. There were 2 small polyps, likely benign. Biopsies to exclude H. pylori infection and celiac disease are pending. 2. History of weight loss with no obvious source and negative imaging studies. 3. Thrombocytopenia of unclear etiology. At this point, there is no specific explanation. RECOMMENDATIONS: The patient will be seen in the office next week for a followup CBC and additional intravenous iron. We will correct the iron deficiency and further assess the blood count to include the platelet count. I have emphasized the need for him to call me for epistaxis, gastrointestinal, or genitourinary bleeding. He does have my contact information. Herminio Feng MD Job ID: [id number] MTDD
--- NOTE | 2020-10-03 19:37 | PDOC.DS.DS ---
Provider Date of Admission: 09/29/20 17:22 Date of Discharge: 10/02/20 Admitting Provider: Fareed Stevens MD Primary Care Physician: Cal Lauren MD Course Hospital Course: Discharge Diagnoses: 1. Iron deficiency Anemia 2. Thrombocytopenia possibly from iron deficiency anemia 3. Gastritis 4. Rectal polyp (removed) and Plyoric polyp ( removed) 5. Large internal hemorrhoids 6. Pulmonary nodule 7. Leukopenia/leukocytosis Brief HPI: This is 74-year-old male with a past medical history of diabetes and hypertension who presented to the emergency room after he was found to have a hemoglobin of 5.5. He reported several weeks of fatigue, weakness and shortness of breath. CT abdomen showed no acute findings. Chest x-ray showed nodular density in the right hilum. The patient was transfused and admitted for further work-up. Hospital Course: The patient was transfused 2 units of blood initially. His hemoglobin improved to 7.1 and then dropped to 6.9 on 10/01. He received another 1 unit of PRBC. Iron panel showed a ferritin of 23. B12 was 656 and folate was 9.5. The patient received 1 dose of IV iron on 10/01. He was started on oral iron supplementation as well. GI was consulted and upper endoscopy showed mild gastritis, and a pyloric polyp which was removed. Colonoscopy showed 2 rectal polyps which were removed, and large internal hemorrhoids. The patient was started on protonix. Biopsies for H pylori and for the polyps are still pending. On the day of discharge, the patient's hemoglobin improved to 8.2. His platelet count dropped to 17, but he had no signs of bleeding or easy bruising. WBC was 11.2. The patient was very anxious to be discharged. Dr. Feng from hematology felt the patient was okay to go home and he will follow him up in the clinic this week and will schedule him for an IV iron infusion. He felt his thrombocytopenia is likely from the iron deficiency and will eventually improve. Pertinent Studies: CT abdomen: no acute findings. Colonic diverticulosis Chest X ray 09/30: subcentimetry nodular density in the right hilum. F/u chest Xray in 3 months. Wedge shaped compression deformity of mid thoracic vertebra Chest CT 10/01: subpleural pulmonary nodules right lower lobe measuring 6 mm. Procedures: EGD Colonoscopy Resuscitation Status: 09/28/20 23:53 Resuscitation Status Routine Resuscitation Status: FULL: Full Resuscitation Lab Results: 10/02/20 05:53 10/02/20 05:53 Abnormal Lab Results - Last 48 hrs 10/02/20 05:53: WBC 11.1 H, RBC 3.70 L, Hgb 8.2 L, Hct 26.4 L, MCV 71.4 L, MCH 22.3 L, MCHC 31.2 L, RDW 25.8 H, Plt Count 17 L*, MPV 13.1 H, Lymphocytes % (Manual) 12 L, Plt Morphology Comment Appears Decreased L, Anisocytosis MODERATE=16-30 cells H Microbiology - Entire Visit 09/28/20 20:26 Urine voided Urine Culture - Final Non-Hemolytic Streptococcus 09/28/20 21:00 Stool - Pending Stool Occult Blood (JOLENE) - Final Vitals: Weight Weight 180 lb Physical Exam: The patient was seen and examined on the day of discharge. General Appearance: NAD, awake alert Eye: PERRL, anicteric sclera ENT: normocephalic atraumatic, no oropharyngeal lesions Neck: no JVD Respiratory: CTAB, no wheezes, no rales, no ronchi Cardiovascular: RRR, no murmur, no gallops, no rubs Gastrointestinal: soft, non-tender, non-distended, normal bowel sounds Extremities: no cyanosis, no clubbing, no edema Skin: normal turgor, no lesions, no rashes Neurological: cranial nerve grossly intact, normal sensation to touch, no weakness Musculoskeletal: normal tone, normal strength, no muscle wasting PSYCH: normal affect, normal behavior, A&O x 3, oriented to person Problem Plan of Treatment: Consider repeat CBC this week due to worsening platelet count of 17 needs repeat colonoscopy probably in 3-5 years Plan Prescriptions: Ferrous Sulfate 325 mg PO BID #60 tablet Home Medications: Medication Instructions Recorded Confirmed Type Dutasteride [Avodart] 0.5 mg PO DAILY 09/29/20 09/29/20 History Glimepiride 2 mg PO BID-AC 09/29/20 09/29/20 History Lisinopril 10 mg PO DAILY 09/29/20 09/29/20 History Pantoprazole [Protonix] 40 mg PO DAILY 09/29/20 09/29/20 History Rosuvastatin Calcium 10 mg PO HS 09/29/20 09/29/20 History metFORMIN HCl [Metformin HCl] 500 mg PO BID 09/29/20 09/29/20 History Ferrous Sulfate 325 mg PO BID #60 tablet 10/02/20 Rx Allergies: meperidine [From Demerol] Allergy (Verified 09/29/20 18:26) Penicillins Allergy (Verified 09/29/20 18:26) Referrals: Charles Levin MD [Active] - Cal Lauren MD [Primary Care Provider] - Herminio Feng MD [Active] - Disposition: HOME Quality CORE MEASURES:: N/A
== END 2020-10-02 12:21 | disposition home or self-care (01) | DRG 812 ==
LOC: ERS 20:19 → ERHOLD 22:19 → T4-B 09-29 15:59 → OBSVTOIN 09-29 17:22
PROVIDERS: ADMIT Internal Medicine; ATTEND Internal Medicine
PROC: 30233N1 Transfusion of Nonautologous Red Blood Cells into Peripheral Vein, Percutaneous Approach (ICD-10-PCS; principal; 2020-09-29)
PROC: 0DB98ZX Excision of Duodenum, Via Natural or Artificial Opening Endoscopic, Diagnostic (ICD-10-PCS; 2020-09-30)
PROC: 0DB78ZX Excision of Stomach, Pylorus, Via Natural or Artificial Opening Endoscopic, Diagnostic (ICD-10-PCS; 2020-09-30)
PROC: 0DB78ZZ Excision of Stomach, Pylorus, Via Natural or Artificial Opening Endoscopic (ICD-10-PCS; 2020-09-30)
PROC: 0DBN8ZZ Excision of Sigmoid Colon, Via Natural or Artificial Opening Endoscopic (ICD-10-PCS; 2020-09-30)
DX: D50.9 Iron deficiency anemia, unspecified (principal); N39.0 Urinary tract infection, site not specified; I10 Essential (primary) hypertension; E11.9 Type 2 diabetes mellitus without complications; D69.6 Thrombocytopenia, unspecified; R63.4 Abnormal weight loss; K29.70 Gastritis, unspecified, without bleeding; R91.1 Solitary pulmonary nodule; K57.30 Diverticulosis of large intestine without perforation or abscess without bleeding; Z20.822 Contact with and (suspected) exposure to COVID-19; K62.1 Rectal polyp; K64.8 Other hemorrhoids; Z88.0 Allergy status to penicillin; Z79.84 Long term (current) use of oral hypoglycemic drugs; Z68.27 Body mass index [BMI] 27.0-27.9, adult; E78.5 Hyperlipidemia, unspecified
CPT/HCPCS: 36415; 36416; 36430; 71046; 71260; 74177; 80048; 80053; 80061; 80076; 81003; 81015; 82274; 82607; 82728; 82746; 83036; 83540; 83550; 83615; 83735; 84443; 85025; 85046; 85060; 85610; 85730; 86850; 86900; 86901; 86921; 87086; 87635; 88305; 88342; 93005; 94760; 96365; G0378; J0696; J2704; J2916; J3475; J3480; J3490; J7050; P9016; Q9967; U0003; U0005

== ENCOUNTER 2022-06-06 09:52 | Emergency (ER) | payer MEDICARE ==
[2022-06-06 10:40] LABS: ALT (SGPT) 24 U/L (8-55); AST (SGOT) 19 U/L (5-34); Albumin 4.3 g/dL (3.4-4.8); Alkaline Phosphatase 108 U/L (40-110); Anion Gap 12 mmol/L (10-20); BUN (Urea Nitrogen) 15 mg/dL (8.4-25.7); Bilirubin, Total 0.5 mg/dL (0.2-1.2); Calc. Creatinine Clearance 0 mL/min (70-130); Carbon Dioxide 28 mmol/L (23-31); Chloride 100 mmol/L (98-107); Estimated GFR 70; Globulin 2.9 g/dL (2.4-3.5); Glucose 376 mg/dL (83-110); Potassium 4.4 mmol/L (3.5-5.1); Protein, Total 7.2 g/dL (5.8-8.1); Sodium 136 mmol/L (136-145)
[2022-06-06 10:48] LABS: #Basophils 0.1 thou/uL (0.0-0.2); #Eosinphils 0.1 thou/uL (0.0-0.7); #Lymphocytes 1.1 thou/uL (1.20-3.40); #Monocytes 0.7 thou/uL (0.11-0.59); #Neutrophils 5.1 thou/uL (1.40-6.50); %Basophils 1.3 % (0.0-1.0); %Lymphocytes 15.4 % (21.0-51.0); %Monocytes 9.3 % (0.0-10.0); Hemoglobin 13.5 g/dL (14.0-18.0); Mean Corpuscular HGB CONC 30.2 g/dL (32.0-36.0); Mean Corpuscular Hemoglobin 27.1 pg (27.0-31.0); Mean Corpuscular Volume 89.8 fl (78.0-98.0); Mean Platelet Volume 9.1 fL (7.4-10.4); Platelet Count 108 thou/uL (130-400); RBC Distribution Width 18.7 % (11.5-14.5); Red Blood Cell (RBC) Count 4.98 mill/uL (4.70-6.10)
[2022-06-06 12:12] LABS: Bilirubin Negative (Negative); Blood, Urine 1+ (Negative); Clarity Turbid (Clear); Glucose, Urine (Dipstick) Greater than 1000 mg/dL (Negative); Ketone, Urine 10 mg/dL (Negative); Leukocyte 500 Leu/uL (Negative); Nitrite Negative (Negative); Protein, Urine (Dipstick) 20 mg/dL (Neg-Trace); Specific Gravity, Urine 1.035 (1.002-1.036); Squamous Epithelial 0-3 HPF (0-3); Urobilinogen Normal mg/dL (Less than 2); WBC/HPF Greater than 50 HPF (0-3)
[2022-06-06 12:20] LABS: Bacteria/HPF 2+ HPF (None Seen)
[2022-06-06] MEDS ORDERED: cefTRIAXone\\ROCEPHIN 1 GM VIAL ONE (13:10)
[2022-06-06] MEDS ORDERED: Azithromycin 250 MG TAB ONE (13:10)
[2022-06-06] MEDS ORDERED: Lidocaine 2% PF 5 ML VIAL ONE (13:20)
[2022-06-06 21:10] LABS: Chlam.trachomatis by PCR,Urine Not Detected (NotDetected)
== END 2022-06-06 13:35 | disposition home or self-care (01) ==
LOC: ERS 09:52
DX: N30.00 Acute cystitis without hematuria (principal); E11.65 Type 2 diabetes mellitus with hyperglycemia; I10 Essential (primary) hypertension; Z79.84 Long term (current) use of oral hypoglycemic drugs; Z79.899 Other long term (current) drug therapy
CPT/HCPCS: 36415; 80053; 81003; 81015; 85025; 87077; 87086; 87186; 87491; 87591; 96372; 99283; J0696; J2001

== ENCOUNTER 2022-06-21 07:03 | Emergency (ER) | payer MEDICARE | END 2022-06-21 09:15 | disposition home or self-care (01) | LOC: ERS 07:03 | DX: B37.42 Candidal balanitis (principal); E11.9 Type 2 diabetes mellitus without complications; I10 Essential (primary) hypertension; Z79.84 Long term (current) use of oral hypoglycemic drugs; Z79.899 Other long term (current) drug therapy | CPT/HCPCS: 99282 ==

== ENCOUNTER 2023-04-08 04:45 | Emergency (ER) | payer MEDICARE ==
[2023-04-08 05:30] LABS: Bacteria/HPF 4+ HPF (None Seen); Bilirubin Negative (Negative); Blood, Urine Trace (Negative); CAUTI Indications for Culture Dysuria,urgency,freq; Clarity Turbid (Clear); Glucose, Urine (Dipstick) Greater than 1000 mg/dL (Negative); Ketone, Urine Trace mg/dL (Negative); Leukocyte 500 Leu/uL (Negative); Nitrite Negative (Negative); Protein, Urine (Dipstick) 20 mg/dL (Neg-Trace); RBC/HPF 0-3 HPF (0-3); Specific Gravity, Urine 1.028 (1.002-1.036); Squamous Epithelial None Seen HPF (0-3); Urobilinogen Normal mg/dL (Less than 2); WBC/HPF Greater than 50 HPF (0-3); pH, Urine 5.5 (5.0-9.0)
[2023-04-08 05:32] LABS: Urine Culture Reflex Yes Yes
[2023-04-08] MEDS ORDERED: LevoFLOXacin 500 MG TAB ONE (06:15)
[2023-04-08] MEDS ORDERED: LevoFLOXacin 250 MG TAB ONE (06:15)
== END 2023-04-08 06:46 | disposition home or self-care (01) ==
LOC: ERS 04:45
DX: N39.0 Urinary tract infection, site not specified (principal); E11.9 Type 2 diabetes mellitus without complications; I10 Essential (primary) hypertension
CPT/HCPCS: 81001; 87077; 87086; 87186; 99283

== ENCOUNTER 2023-07-26 11:28 | Emergency (ER) | payer MEDICARE ==
[2023-07-26 12:19] LABS: Bilirubin Negative (Negative); Blood, Urine Negative (Negative); CAUTI Indications for Culture Dysuria,urgency,freq; Clarity Clear (Clear); Glucose, Urine (Dipstick) Normal (Negative); Ketone, Urine Negative (Negative); Leukocyte Negative Leu/uL (Negative); Nitrite Negative (Negative); Protein, Urine (Dipstick) Negative (Neg-Trace); RBC/HPF 0-3 HPF (0-3); Specific Gravity, Urine 1.029 (1.002-1.036); Squamous Epithelial 0-3 HPF (0-3); Urobilinogen Normal mg/dL (Less than 2); WBC/HPF 0-3 HPF (0-3); pH, Urine 5.5 (5.0-9.0)
[2023-07-26 12:21] LABS: Bacteria/HPF 1+ HPF (None Seen)
[2023-07-26 12:22] LABS: Urine Culture Reflex No No
== END 2023-07-26 13:05 | disposition home or self-care (01) ==
LOC: ERS 11:28
DX: R30.9 Painful micturition, unspecified (principal); E11.9 Type 2 diabetes mellitus without complications; I10 Essential (primary) hypertension
CPT/HCPCS: 81001; 99283